=== PATIENT | male | born 1940 | race Caucasian/White ===

== ENCOUNTER 2017-11-14 15:27 | Emergency (ER) | payer MEDICARE, BC ==
[2017-11-14 15:39] VITALS: BP 150/81
--- NOTE | 2017-11-14 16:32 | EDM.PDOC ---
ED HPI GENERAL MEDICAL PROBLEM - General Chief Complaint: Cardiovascular Problem Stated Complaint: FEET ARE SWOLLEN Time Seen by Provider: 11/14/17 16:04 Source of Information: Reports: Patient History Limitations: Reports: No Limitations - History of Present Illness INITIAL COMMENTS - FREE TEXT/NARRATIVE: Patient is a 77-year-old male who presents to the ED complaining of swollen lower legs for the past 3 days. Patient has 2+ edema to his lower extremities midcalf. He does have history of edema to his lower extremities but normally wears socks that normally stops just above his calves. He does note indentation to wear the compression area was noted. For the past 3 days he has not been wearing these socks and thus has developed increased swelling to his lower extremities along the feet and ankle. This is abnormal. He is short of breath chronically due to his smoking history. This is unchanged. There is no orthopnea or PND. Denies any real increase in weight. Denies any chest pain, abdominal pain, or any additional complaints. He does have appointment scheduled with his primary doctor tomorrow. Patient does have a history of bladder cancer and just finished up second round of chemotherapy. In total he has had 12 treatments. Patient has been on prednisone with hope of stopping this tomorrow. Otherwise he offers no additional complaints. left shoulder Pain Score (Numeric/FACES): 3 - Related Data Allergies Allergy/AdvReac Type Severity Reaction Status Date / Time No Known Allergies Allergy Verified 11/14/17 15:39 Home Meds: Home Meds Ascorbic Acid [Vitamin C] 500 mg PO DAILY 11/14/17 [History] Aspirin 81 mg PO DAILY 11/14/17 [History] Ferrous Sulfate [Iron] 325 mg PO BID 11/14/17 [History] Fish Oil/[employer]-3 Fatty Acids [Fish Oil 1,000 MG] 1 each PO DAILY 11/14/17 [ History] Garlic 1,000 mg PO DAILY 11/14/17 [History] Instaflex 1 tab PO DAILY 11/14/17 [History] Magnesium 250 mg PO DAILY 11/14/17 [History] Multivit-Min/FA/Lycopen/Lutein [Centrum Silver Men Tablet] 1 each PO DAILY 11/14 [History] Naproxen Sodium [Aleve] 1 tab PO BID PRN 11/14/17 [History] Omeprazole Magnesium [Prilosec Otc] 20 mg PO DAILY 11/14/17 [History] Potassium 99 mg PO DAILY 11/14/17 [History] Tamsulosin HCl [Flomax] 0.4 mg PO DAILY 11/14/17 [History] Triamcinolone Acetonide [Triamcinolone Acetonide 0.1% Crm] 1 applic TOP ASDIRECTED PRN 11/14/17 [History] Zinc 50 mg PO DAILY 11/14/17 [History] predniSONE [Prednisone] 3 tab PO DAILY 11/14/17 [History] Past Medical History HEENT History: Reports: Impaired Vision Cardiovascular History: Reports: High Cholesterol, Hypertension Gastrointestinal History: Reports: GERD Genitourinary History: Reports: Prostate Disorder Other Genitourinary History: currently having infusions for bladder cancer Musculoskeletal History: Reports: Arthritis, Other (See Below) Other Musculoskeletal History: chronic knee pain Hematologic History: Reports: Other (See Below) Other Hematologic History: low platelets Oncologic (Cancer) History: Reports: Bladder Dermatologic History: Reports: Eczema - Past Surgical History HEENT Surgical History: Reports: Other (See Below) GI Surgical History: Reports: Colonoscopy, Hernia, Inguinal Other Male Surgeries/Procedures: bladder cancer Social & Family History - Family History Family Medical History: Noncontributory - Tobacco Use Smoking Status *Q: Former Smoker Used Tobacco, but Quit: No - Caffeine Use Caffeine Use: Reports: Coffee - Recreational Drug Use Recreational Drug Use: No ED ROS GENERAL - Review of Systems Review Of Systems: See Below Constitutional: Reports: No Symptoms. Denies: Fever, Chills, Malaise, Weakness , Fatigue, Decreased Appetite HEENT: Reports: No Symptoms Respiratory: Reports: Shortness of Breath (Chronic unchanged). Denies: Wheezing , Pleuritic Chest Pain, Cough, Sputum, Hemoptysis Cardiovascular: Reports: Dyspnea on Exertion (Chronic unchanged), Edema (To the lower extremities mid calf bilaterally.). Denies: Chest Pain GI/Abdominal: Reports: No Symptoms : Reports: No Symptoms Musculoskeletal: Reports: No Symptoms Skin: Reports: No Symptoms Neurological: Reports: No Symptoms ED EXAM, GENERAL - Physical Exam Exam: See Below Exam Limited By: No Limitations General Appearance: Alert, No Apparent Distress Ears: Hearing Grossly Normal Nose: Normal Inspection Throat/Mouth: Normal Voice, No Airway Compromise Neck: Normal Inspection, Supple Respiratory/Chest: No Respiratory Distress, Lungs Clear, Normal Breath Sounds, Chest Non-Tender Cardiovascular: Normal Peripheral Pulses, Regular Rate, Rhythm, No Murmur ( Obvious) Peripheral Pulses: 2+: Radial (L), Radial (R), Posterior Tibial (L), Posterior Tibial (R) GI/Abdominal: Normal Bowel Sounds, Soft, Non-Tender, No Organomegaly, No Distention Back Exam: Normal Inspection, Full Range of Motion Extremities: Normal Range of Motion, Non-Tender, No Pedal Edema, Normal Capillary Refill, Other (2+ edema to the lower extremities midcalf bilaterally. No pain to the posterior aspect of his legs. Skin pink warm and dry. No sensory changes noted.) Neurological: Alert, Oriented, CN II-XII Intact, Normal Cognition, No Motor/ Sensory Deficits Psychiatric: Normal Affect, Normal Mood Skin Exam: Warm, Dry, Intact, Normal Color Course - Vital Signs Last Recorded V/S: Last Vital Signs Temp 98.8 F 11/14/17 15:30 Pulse 66 11/14/17 15:30 Resp 18 11/14/17 15:30 BP 150/81 H 11/14/17 15:30 Pulse Ox 98 11/14/17 15:30 - Orders/Labs/Meds Orders: Active Orders 24 hr Category Date Time Status EKG 12 Lead [EKG Documentation Completion] [RC] STAT Care 11/14/17 16:22 Active Chest 1V Frontal [CR] Stat Exams 11/14/17 16:21 Taken Labs: Laboratory Tests 11/14/17 11/14/17 11/14/17 Range/Units 16:20 16:20 16:20 WBC 7.57 (4.23-9.07) K/mm3 RBC 5.00 (4.63-6.08) M/mm3 Hgb 14.3 (13.7-17.5) gm/L Hct 42.3 (40.1-51.0) % MCV 84.6 (79.0-92.2) fl MCH 28.6 (25.7-32.2) pg MCHC 33.8 (32.2-35.5) g/dl RDW Std Deviation 44.6 H (35.1-43.9) fL Plt Count 244 (163-337) K/mm3 MPV 10.0 (9.4-12.3) fl Neutrophils % (Manual) 78 H (40-60) % Band Neutrophils % 0 (0-10) % Lymphocytes % (Manual) 19 L (20-40) % Atypical Lymphs % 0 % Monocytes % (Manual) 3 (2-10) % Eosinophils % (Manual) 0 L (0.8-7.0) % Basophils % (Manual) 0 L (0.2-1.2) Platelet Estimate Adequate Plt Morphology Comment Normal RBC Morph Comment Not Reportable Sodium 139 (136-145) mEq/L Potassium 4.1 (3.5-5.1) mEq/L Chloride 105 (98-107) mEq/L Carbon Dioxide 26 (21-32) mEq/L Anion Gap 12.1 (5-15) BUN 26 H (7-18) mg/dL Creatinine 1.2 (0.7-1.3) mg/dL Est Cr Clr Drug Dosing 58.38 mL/min Estimated GFR (MDRD) 59 (>60) mL/min BUN/Creatinine Ratio 21.7 H (14-18) Glucose 93 (83-115) mg/dL Calcium 8.9 (8.5-10.1) mg/dL Total Bilirubin 0.5 (0.2-1.0) mg/dL AST 17 (15-37) U/L ALT 25 (16-63) U/L Alkaline Phosphatase 55 (46-116) U/L Troponin I < 0.017 (0.00-0.056) ng/mL NT-Pro-B Natriuret Pep 152 (0-450) pg/mL Total Protein 5.8 L (6.4-8.2) g/dl Albumin 2.8 L (3.4-5.0) g/dl Globulin 3.0 gm/dL Albumin/Globulin Ratio 0.9 L (1-2) - Re-Assessments/Exams Free Text/Narrative Re-Assessment/Exam: Initial labs and studies will include: CBC, chem 14, proBNP, troponin, chest x- ray one view, and EKG. EKG: Sinus bradycardia at a rate of [address] changes noted. Chest x-ray: Reviewed with Dr. Lainez with no findings concerning for increased pulmonary vascularization. No cardiomegaly. Final interpretation is pending. Labs reviewed: CBC essentially normal. Chemistry panel was essentially normal as well. Troponin normal. ProBNP 152. Discussed results of the labs and x-ray with the patient. He has appointment with his PCP tomorrow to get off the prednisone. I offered to write a prescription for compression stockings to which she has refused. In addition we discussed reducing his salt intake to which he states loves salt and would be a hard thing to do. Suspect cause of his swelling to his lower extremities is related to to dependent gravity, salt intake, and also prednisone use.The patient remained hemodynamically stable while under my care in the E.D. I discussed the concerning symptoms for which to return to the E.D. with the patient/family. The patient/family verbalized understanding. All questions were answered. Departure - Departure Time of Disposition: 18:01 Disposition: Home, Self-Care 01 Condition: Good Clinical Impression: Localized swelling of lower leg, On prednisone therapy Instructions: Edema, [id number] Referrals: Eusebio Niño MD [Primary Care Provider] - Forms: ED Department Discharge Additional Instructions: Reduce her salt intake. Please follow the DASH diet. Elevate your legs one hour in the morning and one hour afternoon when able to reduce any swelling. Suggest using knee-high compression stockings. See your PCP tomorrow for prescription and also to further discuss discontinuing the prednisone. Please return back to the ED if you develop any new or worsening symptoms. - My Orders Last 24 Hours: My Active Orders 11/14/17 16:21 Chest 1V Frontal [CR] Stat 11/14/17 16:22 EKG 12 Lead [EKG Documentation Completion] [RC] STAT - Assessment/Plan Last 24 Hours: My Active Orders 11/14/17 16:21 Chest 1V Frontal [CR] Stat 11/14/17 16:22 EKG 12 Lead [EKG Documentation Completion] [RC] STAT
--- NOTE | 2017-11-21 08:36 | CR ---
Chest: Portable view of the chest was obtained. Comparison: No prior chest x-ray. Heart size and mediastinum are within normal limits for portable technique. Lungs are clear without acute parenchymal change. Bony structures are grossly intact. Impression: 1. Nothing acute is appreciated on portable chest x-ray. Diagnostic code #1
== END 2017-11-14 18:10 | disposition home or self-care (01) ==
LOC: JD.ED 15:27
DX: R22.43 Localized swelling, mass and lump, lower limb, bilateral (principal); E78.00 Pure hypercholesterolemia, unspecified; I10 Essential (primary) hypertension; K21.9 Gastro-esophageal reflux disease without esophagitis; Z79.899 Other long term (current) drug therapy; Z87.891 Personal history of nicotine dependence
CPT/HCPCS: 36415; 71045; 71045-26; 80053; 83880; 84484; 85007; 85027; 93005; 99283; 99284-25

== ENCOUNTER 2019-03-21 21:07 | Emergency (ER) | payer MEDICARE, BC ==
[2019-03-21 21:27] VITALS: BP 165/85; PULSE 71
--- NOTE | 2019-03-21 23:04 | EDM.PDOC ---
ED HPI GENERAL MEDICAL PROBLEM - General Chief Complaint: Back Pain or Injury Stated Complaint: BACK PAIN Time Seen by Provider: 03/21/19 22:32 Source of Information: Reports: Patient, Family (, son) History Limitations: Reports: No Limitations - History of Present Illness INITIAL COMMENTS - FREE TEXT/NARRATIVE: Mr. Kong is a very pleasant 78-year-old man with a past medical history significant for both bladder and prostate cancer, status post adjuvant chemotherapy followed by excision of both and a resulting urostomy, who states that he slipped and fell on 03/19/2019, landing on his left posterior ribs. He states that he did not have any pain in that area until tonight, and his pain is only present if he coughs or moves. He has chronic dyspnea on exertion which is unchanged. No recent hemoptysis. No recent fever, chest pain, palpitations, nausea, vomiting, constipation, diarrhea, or peripheral neuropathy. No prior pain in that area. The patient states that he took 2 tablets of Aleve around 18:00. The patient's PCP is Dr. Eusebio Niño. His Oncologist is Dr. Scott Alanis. His Urologist is Dr. Ilir Palafox. The patient did receive an influenza vaccine this season. Treatments SHANK BONER: Reports: Other (see below) Other Treatments SHANK BONER: aleeve Left Back Pain Score (Numeric/FACES): 2 - Related Data Allergies Allergy/AdvReac Type Severity Reaction Status Date / Time No Known Allergies Allergy Verified 11/14/17 15:39 Home Meds: Home Meds Ferrous Sulfate [Iron] 65 mg PO ASDIRECTED 11/14/17 [History] Omeprazole Magnesium [Prilosec Otc] 20 mg PO DAILY 11/14/17 [History] predniSONE [Prednisone] 5 mg PO DAILY 11/14/17 [History] Acetaminophen/HYDROcodone [Bloxom 325-5 MG] 1 - 2 tab PO Q6H PRN #14 tablet 03/21 [Rx] Cholecalciferol (Vitamin D3) [Vitamin D3] 1,000 unit PO DAILY 03/21/19 [History] Past Medical History HEENT History: Reports: Impaired Vision Cardiovascular History: Reports: Hypertension Gastrointestinal History: Reports: GERD Musculoskeletal History: Reports: Arthritis Oncologic (Cancer) History: Reports: Bladder (s/p adjuvant chemotherapy, cystectomy), Prostate (s/p adjuvant chemotherapy, prostatectomy) Dermatologic History: Reports: Eczema - Past Surgical History HEENT Surgical History: Reports: Tonsillectomy GI Surgical History: Reports: Colonoscopy (x 2), EGD (x 1), Hernia, Inguinal ( left) Musculoskeletal Surgical History: Reports: Knee Replacement (left) Oncologic Surgical History: Reports: Other (See Below) (Cystectomy and prostatectomy with urostomy 07/25/2018 at [facility]) Social & Family History - Family History Family Medical History: Noncontributory - Tobacco Use Smoking Status *Q: Former Smoker Years of Tobacco use: 43 Packs/Tins Daily: 1 Month/Year Tobacco Last Used: Quit 2001 - Caffeine Use Caffeine Use: Reports: Coffee, Soda, Tea - Alcohol Use Alcohol Use History: Yes Alcohol Use Frequency: Socially - Recreational Drug Use Recreational Drug Use: No - Living Situation & Occupation Living situation: Reports: , with Spouse Occupation: Retired ED ROS GENERAL - Review of Systems Review Of Systems: Comprehensive ROS is negative, except as noted in HPI. ED EXAM, GENERAL - Physical Exam Exam: See Below Exam Limited By: No Limitations General Appearance: Alert, WD/WN, No Apparent Distress Eye Exam: Bilateral Eye: EOMI, Normal Inspection Ears: Normal External Exam, Hearing Grossly Normal Nose: Normal Inspection Throat/Mouth: Normal Inspection, Normal Lips, Normal Voice, No Airway Compromise Head: Atraumatic, Normocephalic Neck: Normal Inspection, Full Range of Motion Respiratory/Chest: No Respiratory Distress, No Accessory Muscle Use, Crackles ( subtle, over mid-left back on left). No: Decreased Breath Sounds, Rhonchi, Wheezing, Stridor, Prolonged Expiration Cardiovascular: Normal Peripheral Pulses, Regular Rate, Rhythm, No Edema, No Gallop, No JVD, No Murmur, No Rub Peripheral Pulses: 4+: Radial (L), Radial (R) GI/Abdominal: Normal Bowel Sounds, Soft, Non-Tender, No Organomegaly, No Distention, No Abnormal Bruit, No Mass, Other (right sided urostomy bag - site C /D/I) (Male) Exam: Deferred Rectal (Males) Exam: Deferred Back Exam: Full Range of Motion Extremities: Normal Inspection, Normal Range of Motion, No Pedal Edema, Normal Capillary Refill Neurological: Alert, Oriented, Normal Cognition, No Motor/Sensory Deficits Psychiatric: Normal Affect Skin Exam: Warm, Dry, Intact, Normal Color, No Rash Course - Vital Signs Last Recorded V/S: Last Vital Signs Temp 36.3 C 03/21/19 21:27 Pulse 71 03/21/19 21:27 Resp 20 03/21/19 21:27 BP 165/85 H 03/21/19 21:27 Pulse Ox 97 03/21/19 21:27 - Orders/Labs/Meds Meds: Medications Discontinued Medications Generic Name Dose Route Start Last Admin Trade Name Karen PRN Reason Stop Dose Admin Hydrocodone Bitart/Acetaminophen 2 tab 03/21/19 23:42 03/21/19 23:59 Bloxom 325-5 Mg PO 03/21/19 23:43 2 tab ONETIME ONE Administration - Re-Assessments/Exams Free Text/Narrative Re-Assessment/Exam: 03/21/19 23:00 The patient is complaining of pain to his mid left back, and he has tenderness in the area of his pain. There is no visible abnormality, and no crepitus, although he does have some subtle crackles on auscultation that are not present on the right. My suspicion for a rib fracture is low, but I want to make sure that he has not suffered a pulmonary contusion or consequence of a subtle rib fracture, such as a hemothorax or pneumothorax, therefore I have ordered two- view chest x-ray. In the meantime, the patient will be given 2 tablets of Bloxom. 03/21/19 23:40 2-view chest radiograph appears to be grossly normal. The cardiac silhouette is within normal limits. No pulmonary vascular congestion. No pleural effusions. No focal infiltrate. No pneumothorax. Formal read per the Radiologist pending. 03/21/19 23:43 Chest x-ray results discussed with the patient, his , and son. As above, it appears that the patient contused his posterior left chest, but I find no evidence of a broken rib or other significant injury. I will discharge the patient home with a prescription for Bloxom. Alternatively, he could take just Tylenol, if he prefers, but I asked him to not take an NSAID while he is on prednisone, as the combination significantly increases the risk of a GI bleed. Departure - Departure Time of Disposition: 23:44 Disposition: Home, Self-Care 01 Condition: Good Clinical Impression: Chest wall contusion - Discharge Information *PRESCRIPTION DRUG MONITORING PROGRAM REVIEWED*: Not Applicable *COPY OF PRESCRIPTION DRUG MONITORING REPORT IN PATIENT JOSSELINE: Not Applicable Prescriptions: Acetaminophen/HYDROcodone [Bloxom 325-5 MG] 1 - 2 tab PO Q6H PRN #14 tablet PRN Reason: Pain (Severe 7-10) Instructions: Chest Wall Pain Referrals: Eusebio Niño MD [Primary Care Provider] - Ilir Palafox MD [Consulting Physician] - Scott Alanis MD [Ordering Only Provider] - Forms: ED Department Discharge Additional Instructions: You were seen in the emergency room after developing pain to your left back, after slipping and falling on ice on Tuesday. Workup in the ER included a chest x-ray, which returned normal. No broken ribs, blood in your chest, or a popped lung were found. Based on your history, physical exam, and ER chest x-ray, you have most likely contused (bruised) or chest wall. You may take Tylenol alone, if you prefer, or one to 2 tablets of the prescription opioid Bloxom up to every 6 hours, as needed for pain. As discussed, we strongly recommend that you not take an NSAID, such as aspirin , ibuprofen (Advil, Motrin), or naproxen (Aleve) while you are taking prednisone , as the combination of an NSAID and prednisone significantly increases the risk of your developing a GI bleed. As discussed, while it may be painful, we recommend that you stay active. Follow-up with your PCP, Dr. Niño, as needed. If any other problems, please do not hesitate to return to the ER. Sepsis Event Note - Evaluation Sepsis Screening Result: No Definite Risk - Focused Exam Date Exam was Performed: 03/23/19 Time Exam was Performed: 01:51
[2019-03-21] MEDS ORDERED: Acetaminophen/HYDROcodone 325-5 MG Tab PO ONE (23:42)
--- NOTE | 2019-03-22 09:52 | CR ---
Chest: Two views of the chest were obtained. Comparison: Previous chest x-ray of 11/14/17. Heart size and mediastinum are normal. Lungs are clear with no acute parenchymal change. Slight scarring is noted within the lateral left costophrenic angle. Degenerative change and disc space narrowing is scattered within the spine. Impression: 1. Findings as noted above. 2. Nothing acute is seen on two-view chest x-ray. Diagnostic code #2 This report was dictated in [place] Standard Time
== END 2019-03-22 00:04 | disposition home or self-care (01) ==
LOC: JD.ED 21:07
DX: S20.212A Contusion of left front wall of thorax, initial encounter (principal); I10 Essential (primary) hypertension; Z79.899 Other long term (current) drug therapy; Z87.891 Personal history of nicotine dependence; W01.0XXA Fall on same level from slipping, tripping and stumbling without subsequent striking against object, initial encounter
CPT/HCPCS: 71046; 99283; A9270